=== PATIENT | female | born 1945 | race Caucasian/White ===

== ENCOUNTER 2024-06-26 11:38 | Observation (INO) | payer MEDICARE, SELFPAY ==
[2024-06-26] VITALS (9 sets, daily range): BP systolic 105–125; BP diastolic 57–65; PULSE 58–69; RESP 16–24; TEMP 36.6–37.1; O2SAT 94–97; BMI 28.6
--- NOTE | ~2024-06-26 | XR_ITS ---
XR chest 2V 06/26/2024 12:52 Indication: Cardiac concern Procedure: 2 view chest Comparison: No prior studies for comparison. Findings: Borderline heart size. No focal air space disease, pulmonary edema, pleural effusion or bertha pected pneumothorax. Impression: 1: No acute cardiopulmonary disease. Reviewed, dictated and finalized at location B. COVERER AND INSULATOR Impression: 1: No acute cardiopulmonary disease.
--- NOTE | ~2024-06-26 | CT_ITS ---
CT brain wo con Ordering provider: Josseline vAelar APRN History: 78 years Female with . altered mental status . Comparison: None. Technique: CT of the head without contrast. Radiation reduction technique utilized.The dose-length pr oduct was 605.33 mGy-cm. FINDINGS: BRAIN PARENCHYMA AND CSF SPACES: Bilateral frontal isodense subdural hematomas are seen. The maximum thickness on the right side is 1.3 cm. The maximum thickness on the left is 1.5 cm. Small density with surrounding hypodensity in the left cerebellar hemisphere. Brain atrophy with deep white matter ischemic changes. No midline shift, mass effect or hemorrhage. The brain parenchyma an d CSF spaces are otherwise normal. VISUALIZED PARANASAL SINUSES: Well aerated. MASTOIDS: Sclerotic changes seen in the left mastoid air cells. BONES: The bones appear intact. Postoperative changes of the left occipital bone. SOFT TISSUES: Visualized nasopharynx is normal. Superficial soft tissues are normal. IMPRESSION: Bilateral isodense chronic subdural hematomas. Hypodensity in the left cerebellar area with possible isodense area seen medially. MRI with contrast study for evaluation is advised. Reviewed, dictated and finalized at location A. [employer] IMPRESSION: Bilateral isodense chronic subdural hematomas. Hypodensity in the left cerebellar area with possible isodense area seen medial ly. MRI with contrast study for evaluation is advised.
--- NOTE | 2024-06-26 11:42 | ED.AMS ---
HPI - Altered Mental Status General Chief Complaint: Altered Mental Status <Josseline Avelar APRN - Last Filed: 06/26/24 11:44> Stated Complaint: stroke vs uti? <Josseline Avelar APRN - Last Filed: 06/26/24 11:44> Time Seen by Provider: 06/26/24 11:38 <Josseline Avelar APRN - Last Filed: 06/26/24 11:44> Focused HPI: Patient is an 78-year-old female who presents to the ER with altered mental status. Her last known well is unknown. Patient's daughter had concerns because she is not acting like herself. Patient had a stroke recently and is living in a half-way facility now. She has history of a.fib, although there are no anticoagulant medications listed on her home medication list. Upon arrival to the ER she is alert and oriented x3. EMS reports patient is giddy but her stroke scale is negative. Patient denies pain. GENERAL: Well-appearing, well-nourished, and in no acute distress. HEAD: Normocephalic, atraumatic. CHEST: Clear to auscultation. ?No respiratory distress. HEART: irregular rate and rhythm.? NEURO: ?Alert and oriented x3. Cranial nerves intact. Patient screened in triage and initial orders placed.? ?Additional care and disposition to be based upon?diagnostic testing and treatment. <Josseline Avelar APRN - Last Filed: 06/26/24 11:44> History of Present Illness HPI narrative: Agree with HPI above <Wilfredo Pisano MD - Last Filed: 06/26/24 19:46> Related Data Home Medications: Home Medications Medication Instructions Recorded Confirmed Multivitamin-Minerals 1 tablet PO DAILY 06/26/24 06/26/24 acetaminophen 650 mg tablet 650 mg PO Q6H PRN Pain 06/26/24 06/26/24 atorvastatin 10 mg tablet 10 mg PO HS 06/26/24 06/26/24 bisacodyl 10 mg rectal suppository 10 mg RECTAL DAILY PRN Constipation 06/26/24 06/26/24 (Dulcolax (bisacodyl)) calcium 600 mg (as carbonate)-vit 1 tablet PO DAILY 06/26/24 06/26/24 D3 5 mcg (200 unit)-minerals tablet docusate sodium 100 mg capsule 100 mg PO BID 06/26/24 06/26/24 donepezil 10 mg tablet 10 mg PO HS 06/26/24 06/26/24 levetiracetam 500 mg tablet 500 mg PO BID 06/26/24 06/26/24 levothyroxine 50 mcg tablet 50 mcg PO DAILY 06/26/24 06/26/24 melatonin 3 mg tablet 3 mg PO HS PRN Insomnia 06/26/24 06/26/24 memantine 10 mg tablet 10 mg PO BID 06/26/24 06/26/24 metoprolol succinate 25 mg 12.5 mg PO DAILY 06/26/24 06/26/24 tablet,extended release 24 hr polyethylene glycol 3350 17 gram 17 g PO DAILY 06/26/24 06/26/24 oral powder packet (Miralax) sertraline 50 mg tablet 50 mg PO DAILY 06/26/24 06/26/24 <Josseline Avelar APRN - Last Filed: 06/26/24 11:44> Allergies/Adverse Reactions: Allergies Allergy/AdvReac Type Severity Reaction Status Date / Time No Known Allergies Allergy Verified 06/26/24 14:59 <Josseline Avelar APRN - Last Filed: 06/26/24 11:44> [facility] Social History Social History: Social History Smoking status: Unknown if ever smoked Alcohol intake: never Substance use: never Spiritual care concerns: No <Josseline Avelar APRN - Last Filed: 06/26/24 11:44> Exam Narrative: GENERAL: [Well-appearing, well-nourished, and in no acute distress.] HEAD: [Normocephalic, atraumatic.] EYES: [PERRLA and EOMI.] ENT: Nares clear, no rhinorrhea or epistaxis. Mucous membranes moist. NECK: Supple. CHEST: [Clear to auscultation. No respiratory distress.] HEART: [Regular rate and rhythm]. No murmur heard. [Normal peripheral pulses.] ABDOMEN: [Soft, nondistended], [nontender], [No rigidity or guarding] EXTREMITIES: Normal range of motion. [No edema.] SKIN: Warm, dry, no rash. NEURO: [No focal deficits]. Alert only to her name, pleasant cooperative, not any acute distress, moving all extremities equally without any facial asymmetry PSYCH: [Normal mood and affect.] <Wilfredo Pisano MD - Last Filed: 06/26/24 19:46> Course Vital Signs Vital signs: Vital Signs Temperature 36.6 C 06/26/24 11:41 Pulse Rate 69 06/26/24 11:41 Respiratory Rate 16 06/26/24 11:41 Blood Pressure 107/58 L 06/26/24 11:41 Pulse Oximetry 96 06/26/24 11:41 Oxygen Delivery Room Air 06/26/24 11:41 Temperature 36.6 C 06/26/24 11:41 Pulse Rate 64 06/26/24 15:45 Respiratory Rate 20 06/26/24 15:45 Blood Pressure 125/65 06/26/24 14:36 Pulse Oximetry 97 06/26/24 13:47 Oxygen Delivery Room Air 06/26/24 11:41 <Josseline Avelar, T[employer] - Last Filed: 06/26/24 11:44> Vital Signs Temperature 36.6 C 06/26/24 11:41 Pulse Rate 69 06/26/24 11:41 Respiratory Rate 16 06/26/24 11:41 Blood Pressure 107/58 L 06/26/24 11:41 Pulse Oximetry 96 06/26/24 11:41 Oxygen Delivery Room Air 06/26/24 11:41 Temperature 36.6 C 06/26/24 11:41 Pulse Rate 64 06/26/24 15:45 Respiratory Rate 20 06/26/24 15:45 Blood Pressure 125/65 06/26/24 14:36 Pulse Oximetry 97 06/26/24 13:47 Oxygen Delivery Room Air 06/26/24 11:41 <Wilfredo Pisano MD - Last Filed: 06/26/24 19:46> MDM - Altered Mental Status MDM Narrative Medical decision making narrative: 78-year-old female presenting from [facility] with increased confusion over last 3 days. Patient recently had a right-sided subdural hematoma at outside facility last month. Was discharged home after rehabilitation and sent to [facility]. Daughter states that she has not had any new or increased falls but is currently on reported blood thinner medications. Patient was seen in triage and a workup was ordered including head CT and laboratory assessments. On my initial encounter the patient she is not any acute distress, pleasant, cooperative but is very demented which is at her baseline according to the family member at bedside. Broad workup was ordered to assess for any potential etiologies is infection, urinary tract infection, intracranial process such as a worsening brain bleed, stroke or other process such as infection. Workup revealed no leukocytosis or anemia, normal platelets. Normal coagulation studies. Normal electrolytes, normal renal function panel. Normal hepatic function panel. Negative troponin. Urinalysis without any active signs of infection besides a minor leukocyte Estrace trace. Family informed me that she has been previously on some antibiotics in the last few days for the UTI. She is given a dose of Rocephin here for continued therapy at the request of the family over. We did discuss that her urine does not show any convincing evidence of infection aside from the leukocyte Estrace and she is not require any additional treatments for UTI at this point. Patient's head CT showed some concerning findings and the radiologist did call the mid-level provider to inform them of the bilateral isodense chronic subdural hematomas and hypodensity left cerebellar region with potential for mass of unclear etiology. I went to evaluate the patient once again and she still is pleasant, calm, cooperative without any apparent complaints. I informed the family about the bilateral subdurals and they showed me the report that she only had a right-sided subdural just several weeks ago. Given the new subdural hematoma likely secondary to another fall or other process such as a delayed bleed patient would require admission to the hospital, MRI imaging and neurosurgical evaluation and treatment. I had discussions with the family at bedside at this point who elected to keep the patient as a comfort care status as she was already DNR and DNI and I actually discussed possibility of going into hospice care instead of pursuing any kind of treatments. Patient's power of commercial real estate attorney and family member at bedside was set on initiating talks for hospice and did not want any invasive measures or pursuing treatment for the subdural hematomas. Clinical physician locums urgent care was called to bedside and several options for hospice initiation was discussed. Information was faxed to facility locally and patient will be admitted to the hospital overnight to get placed likely tomorrow morning according to the physician locums urgent care. I discussed the case with the on-call MLP covering the hospitalist group and she was accepted to a med surge but at this time. Patient is DNR status was updated in the EMR and the goals of care being no treatment of the subdurals or any aggressive measures besides comfort care and pain relief until hospice placement tomorrow. <Wilfredo Pisano MD - Last Filed: 06/26/24 19:46> Medical Records Attestation: I reviewed the patient's medical records. <Wilfredo Pisano MD - Last Filed: 06/26/24 19:46> Lab Data Attestation: I reviewed the patient's lab results. <Wilfredo Pisano MD - Last Filed: 06/26/24 19:46> Result diagrams: 06/26/24 12:03 06/26/24 12:03 <Josseline Avelar APRN - Last Filed: 06/26/24 11:44> Labs: Lab Results 06/26/24 06/26/24 Range/Units 12:03 13:46 WBC 10.0 (4.5-10.0) K/mm3 RBC 4.72 (4.2-5.4) M/mm3 Hgb 14.9 (12.0-15.0) g/dL Hct 45.7 (37.0-47.0) % MCV 96.8 (80-100) fl MCH 31.6 (26-34) pg MCHC 32.6 (32-36) g/dl RDW 12.9 (11.5-14.5) % Plt Count 494 H (150-375) k/mm3 MPV 9.3 (7.4-10.4) fl Immature Gran % (Auto) 0.5 (0-0.5) % Neut % (Auto) 66.9 (45.5-73.1) % Lymph % (Auto) 17.8 L (18.3-44.2) % [place] % (Auto) 10.8 H (2.6-8.5) % Eos % (Auto) 3.2 (0-4.4) % Baso % (Auto) 0.8 (0.2-1.2) % Lymph # (Auto) 1.77 (0.9-3.2) K/mm3 [place] # (Auto) 1.1 H (0.1-0.6) K/mm3 Eos # (Auto) 0.3 (0-0.3) K/mm3 Baso # (Auto) 0.1 (0.0-0.1) K/mm3 Abs Immat Gran (auto) 0.05 H (0.00-0.031) K/mm3 Absolute Neuts (auto) 6.7 (1.3-6.7) K/mm3 Absolute Nucleated RBC 0.000 (0.0-0.012) K/mm3 Nucleated RBC % 0.0 (0.0-0.2) % PT 13.7 (11.1-14.7) Seconds INR 1.0 APTT 28.3 (22.3-36.8) Seconds Sodium 138 (137-145) mmol/L Potassium 3.8 (3.4-5.0) mmol/L Chloride 104 (98-107) mmol/L Carbon Dioxide 29 (22-30) mmol/L Anion Gap 5 (4-12) mmol/L BUN 13 (7-17) mg/dL Creatinine 0.70 (0.7-1.0) mg/dL Estim Creat Clear Calc 55 ml/min Estimated GFR > 60 (59 - ) Glucose 124 H (65-110) mg/dL Calcium 9.3 (8.4-10.2) mg/dL Total Bilirubin 0.4 (0.2-1.3) mg/dL AST 24 (14-36) U/L ALT 24 (6-35) U/L Alkaline Phosphatase 93 (38-126) U/L Troponin I < 0.012 (0.000-0.034) ng/mL Total Protein 8.0 (6.3-8.2) g/dL Albumin 4.0 (3.5-5.1) g/dL Urine Color Dark yellow (Yellow) Urine Appearance Clear (Clear) Urine pH 5.5 (5.0-9.0) Ur Specific [place] 1.025 (1.001-1.035) Urine Protein Negative (Negative) mg/dL Urine Glucose (UA) Negative (Negative) mg/dL Urine Ketones Trace H (Negative) mg/dL Ur Blood (Man) Negative (Negative) Urine Nitrate Negative (Negative) Urine Bilirubin Negative (Negative) Urine Urobilinogen 1.0 (<2.0) mg/dL Leukocyte Esterase Rfl Trace H (Negative) REYNA/UL Urine RBC 3-5 H (0-2) /hpf Urine WBC 0-5 (0-3) /hpf Ur Squamous Epith Cells None seen (Few) /hpf Urine Bacteria None seen /hpf Urine Casts 0-2 Influenza A (RT-PCR) Negative (Negative) Influenza B (RT-PCR) Negative (Negative) RSV (RT-PCR) Negative (Negative) SARS-CoV-2 RNA (RT-PCR) Negative (Negative) <Josseline Rudy Avelar, TITLE CLERK [employer] - Last Filed: 06/26/24 11:44> Lab Results 06/26/24 06/26/24 Range/Units 12:03 13:46 WBC 10.0 (4.5-10.0) K/mm3 RBC 4.72 (4.2-5.4) M/mm3 Hgb 14.9 (12.0-15.0) g/dL Hct 45.7 (37.0-47.0) % MCV 96.8 (80-100) fl MCH 31.6 (26-34) pg MCHC 32.6 (32-36) g/dl RDW 12.9 (11.5-14.5) % Plt Count 494 H (150-375) k/mm3 MPV 9.3 (7.4-10.4) fl Immature Gran % (Auto) 0.5 (0-0.5) % Neut % (Auto) 66.9 (45.5-73.1) % Lymph % (Auto) 17.8 L (18.3-44.2) % [place] % (Auto) 10.8 H (2.6-8.5) % Eos % (Auto) 3.2 (0-4.4) % Baso % (Auto) 0.8 (0.2-1.2) % Lymph # (Auto) 1.77 (0.9-3.2) K/mm3 [place] # (Auto) 1.1 H (0.1-0.6) K/mm3 Eos # (Auto) 0.3 (0-0.3) K/mm3 Baso # (Auto) 0.1 (0.0-0.1) K/mm3 Abs Immat Gran (auto) 0.05 H (0.00-0.031) K/mm3 Absolute Neuts (auto) 6.7 (1.3-6.7) K/mm3 Absolute Nucleated RBC 0.000 (0.0-0.012) K/mm3 Nucleated RBC % 0.0 (0.0-0.2) % PT 13.7 (11.1-14.7) Seconds INR 1.0 APTT 28.3 (22.3-36.8) Seconds Sodium 138 (137-145) mmol/L Potassium 3.8 (3.4-5.0) mmol/L Chloride 104 (98-107) mmol/L Carbon Dioxide 29 (22-30) mmol/L Anion Gap 5 (4-12) mmol/L BUN 13 (7-17) mg/dL Creatinine 0.70 (0.7-1.0) mg/dL Estim Creat Clear Calc 55 ml/min Estimated GFR > 60 (59 - ) Glucose 124 H (65-110) mg/dL Calcium 9.3 (8.4-10.2) mg/dL Total Bilirubin 0.4 (0.2-1.3) mg/dL AST 24 (14-36) U/L ALT 24 (6-35) U/L Alkaline Phosphatase 93 (38-126) U/L Troponin I < 0.012 (0.000-0.034) ng/mL Total Protein 8.0 (6.3-8.2) g/dL Albumin 4.0 (3.5-5.1) g/dL Urine Color Dark yellow (Yellow) Urine Appearance Clear (Clear) Urine pH 5.5 (5.0-9.0) Ur Specific [place] 1.025 (1.001-1.035) Urine Protein Negative (Negative) mg/dL Urine Glucose (UA) Negative (Negative) mg/dL Urine Ketones Trace H (Negative) mg/dL Ur Blood (Man) Negative (Negative) Urine Nitrate Negative (Negative) Urine Bilirubin Negative (Negative) Urine Urobilinogen 1.0 (<2.0) mg/dL Leukocyte Esterase Rfl Trace H (Negative) REYNA/UL Urine RBC 3-5 H (0-2) /hpf Urine WBC 0-5 (0-3) /hpf Ur Squamous Epith Cells None seen (Few) /hpf Urine Bacteria None seen /hpf Urine Casts 0-2 Influenza A (RT-PCR) Negative (Negative) Influenza B (RT-PCR) Negative (Negative) RSV (RT-PCR) Negative (Negative) SARS-CoV-2 RNA (RT-PCR) Negative (Negative) <Wilfredo Pisano MD - Last Filed: 06/26/24 19:46> Imaging Data Attestation: I personally reviewed and interpreted this imaging study as follows: <Wilfredo Pisano MD - Last Filed: 06/26/24 19:46> My impression: Impressions Head CT 06/26/24 12:48 IMPRESSION: Bilateral isodense chronic subdural hematomas. Hypodensity in the left cerebellar area with possible isodense area seen medially. MRI with contrast study for evaluation is advised. ADDENDUM: 06/26/24 1315 Physician: Josseline Avelar APRN Was notified with the result of the patient at 1:15 PM on June 26, 2024 Chest X-Ray 06/26/24 12:53 Impression: 1: No acute cardiopulmonary disease. <Wilfredo Pisano MD - Last Filed: 06/26/24 19:46> Discharge Plan Discharge Clinical Impression: Admission for hospice care, Altered mental status, SDH (subdural hematoma) <Josseline Aevlar APRN - Last Filed: 06/26/24 11:44> Patient Disposition: Home, Self-Care <Josseline Avelar APRN - Last Filed: 06/26/24 11:44> Condition: Stable <Josseline Avelar APRN - Last Filed: 06/26/24 11:44>
--- NOTE | 2024-06-26 11:45 | ECG_ITS ---
Test Date: 2024-06-26 11:54:46 Measurements Intervals [place] Rate: 61 P: 50 VT: 165 QRS: -35 QRSD: 122 T: 27 QT: 432 QTc: 436 Interpretive Statements SINUS RHYTHM LEFT AXIS DEVIATION RIGHT BUNDLE BRANCH BLOCK BASELINE ARTIFACT- I, II, III, AVR, V4-V6 ABNORMAL ECG No previous ECG available for comparison Electronically Signed On 06-26-2024 12:00:57 PRINCIPAL SOFTWARE ARCHITECT by Kd Vang D.O.
[2024-06-26 12:11] LABS: Basophils Absolute Auto 0.1 K/mm3 (0.0-0.1); Basophils Percent Auto 0.8 % (0.2-1.2); Eosinophils Absolute Auto 0.3 K/mm3 (0-0.3); Eosinophils Percent Auto 3.2 % (0-4.4); Hematocrit 45.7 % (37.0-47.0); Hemoglobin 14.9 g/dL (12.0-15.0); Immature Granulocyte Absolute 0.05 K/mm3 (0.00-0.031); Immature Granulocyte Percent A 0.5 % (0-0.5); Lymphocytes Absolute Auto 1.77 K/mm3 (0.9-3.2); Lymphocytes Percent Auto 17.8 % (18.3-44.2); Mean Corpuscular HGB Conc 32.6 g/dl (32-36); Mean Corpuscular Hemoglobin 31.6 pg (26-34); Mean Corpuscular Volume 96.8 fl (80-100); Mean Platelet Volume 9.3 fl (7.4-10.4); Monocytes Absolute Auto 1.1 K/mm3 (0.1-0.6); Monocytes Percent Auto 10.8 % (2.6-8.5); Neutrophils Absolute Auto 6.7 K/mm3 (1.3-6.7); Neutrophils Percent Auto 66.9 % (45.5-73.1); Platelet Count Result 494 k/mm3 (150-375); Red Blood Count 4.72 M/mm3 (4.2-5.4); Red Cell Distribution Width 12.9 % (11.5-14.5)
[2024-06-26 12:24] LABS: Partial Thromboplastin Time 28.3 Seconds (22.3-36.8); Prothrombin Time 13.7 Seconds (11.1-14.7)
[2024-06-26 12:29] LABS: Alanine Aminotransferase 24 U/L (6-35); Alkaline Phosphatase 93 U/L (38-126); Anion Gap 5 mmol/L (4-12); Aspartate Amino Transferase 24 U/L (14-36); Bilirubin,Total 0.4 mg/dL (0.2-1.3); Blood Urea Nitrogen 13 mg/dL (7-17); Calcium 9.3 mg/dL (8.4-10.2); Carbon Dioxide 29 mmol/L (22-30); Chloride 104 mmol/L (98-107); Estimated CRCL calculation 55 ml/min; Estimated Glomerular Filt Rate > 60; Glucose 124 mg/dL (65-110); Potassium 3.8 mmol/L (3.4-5.0); Sodium 138 mmol/L (137-145)
[2024-06-26 12:40] LABS: Troponin I < 0.012 ng/mL (0.000-0.034)
[2024-06-26 12:46] LABS: Influenza A QL RT-PCR Negative (Negative); Influenza B QL RT-PCR Negative (Negative); RSV RNA, RT-PCR Negative (Negative); SARS-CoV-2 RNA PCR Negative (Negative)
[2024-06-26 13:58] LABS: Add Urine Microscopic? YES; Appearance Urine Clear (Clear); Bacteria Urine None Seen /hpf; Bilirubin Urine Negative (Negative); Blood Urine Negative (Negative); Color Urine Dark Yellow (Yellow); Glucose Urine UA Negative (Negative); Ketones Urine Trace mg/dL (Negative); Leukocyte Esterase Ur Trace LEU/UL (Negative); Nitrate Urine Negative (Negative); Non Pathogenic Casts 0-2; Protein Urine Negative (Negative); Specific Grav Ur 1.025 (1.001-1.035); Squamous Epithelial Cell Urine None Seen /hpf (Few); WBC Urine 0-5 /hpf (0-3); pH Urine 5.5 (5.0-9.0)
--- NOTE | 2024-06-26 14:27 | PCCCNOTE ---
1427-Called to the pt's room d/t the daughter and POA requesting Hospice and change in placement from [facility]. Stated she wanted her mom to go to Hospice however was not aware there is no local facility. Pt is also medicaid pending and with [facility]. Supplied a list of NH in the area for the daughter to review at this time. Family does not have the finances to pay of of pocket for placement.hetal.
[2024-06-26] MEDS: Please add drug allergy info to patient profile. 1 EACH XX (15:00)
--- NOTE | 2024-06-26 15:11 | PCCCNOTE ---
1511-Pt's daughter is wanting the pt to be sent to [facility]. Called [phone] and spoke to Suzanne. Stated they are accepting pt's with medicaid pending status and to fax a referral to them at [phone] which was completed. Also faxed a referral to [facility] and verified with Suzanne they also do accept [facility] at their facility if the pt is admitted there would be no potential conflicts. Charge nurse and family made aware of the pending status.-hetal.
--- NOTE | 2024-06-26 15:41 | PCCCNOTE ---
1541-Called [facility] at [phone] and [facility] for Suzanne to return the call in attempts to check on the status of approval/denial of admission to facility.-hetal.
--- NOTE | 2024-06-26 15:57 | PCCCNOTE ---
*1557- Daughter received a call Kamille will be in house to see the pt at 1615 today. Suzanne also called from [facility] and stated the fax goes to their business office and the referral is pending. She is unsure if the pt can/will be admitted this evening.-hetal.
[2024-06-26 16:37] LABS: Glucose Point of Care 139 mg/dl (65-105)
--- NOTE | 2024-06-26 18:19 | ADMGEN ---
This patient, Zaida Carreno, was admitted to Medical Room 341-01. Patient/family oriented to hospital policies and general routines including ID bracelet, bed and alarms, visiting hours, pain management, procedures, bathroom and other care routines, personal items, smoking policy, room service/diet, and visiting hours. Information on how to activate the Rapid Response Team has been discussed. Patient/Family are encouraged to report perceived risks to care and to ask questions if they do not understand what they are told or what they should do.
--- NOTE | 2024-06-26 19:36 | PM.IMHP ---
H&P: HPI History of Present Illness Date/Time: 06/26/24 19:36 Chief Complaint: Altered mental status Narrative: 78-year-old female with fall last month resulting in bilateral subdural hemorrhages presents the hospital a day for increased altered mental status. Patient was a long term and the daughter saw her today stating at she had increased slurred speech and was acting bizarre. HPI is limited due to the patient having altered mental status. For the ED provider the patient was A&O x3. Patient is alert and oriented to self and hospital however she is confused about the events that happened today. Patient's UA showed trace leukocyte esterase and patient was given Rocephin done emergency room. Head CT showed Bilateral frontal isodense subdural hematomas are seen. The maximum thickness on the right side is 1.3 cm. The maximum thickness on the left is 1.5 cm, which appeared to be chronic. Family wishes no aggressive measures, DNR, DNI no escalation care. Family wishes to have patient admitted to hospice, plan for patient to discharge to hospice tomorrow. Patient has no complaints at this time Review of Systems Review of Systems: ROS unobtainable: Yes unobtainable due to mental status PMFSH Social History Social History Smoking status: Unknown if ever smoked Alcohol intake: never Substance use: never Spiritual care concerns: No Meds Home Medications and Allergies Home Medications Medication Instructions Recorded Confirmed Type Multivitamin-Minerals 1 tablet PO DAILY 06/26/24 06/26/24 History acetaminophen 650 mg tablet 650 mg PO Q6H PRN Pain 06/26/24 06/26/24 History atorvastatin 10 mg tablet 10 mg PO HS 06/26/24 06/26/24 History bisacodyl 10 mg rectal suppository 10 mg RECTAL DAILY PRN Constipation 06/26/24 06/26/24 History (Dulcolax (bisacodyl)) calcium 600 mg (as carbonate)-vit 1 tablet PO DAILY 06/26/24 06/26/24 History D3 5 mcg (200 unit)-minerals tablet docusate sodium 100 mg capsule 100 mg PO BID 06/26/24 06/26/24 History donepezil 10 mg tablet 10 mg PO HS 06/26/24 06/26/24 History levetiracetam 500 mg tablet 500 mg PO BID 06/26/24 06/26/24 History levothyroxine 50 mcg tablet 50 mcg PO DAILY 06/26/24 06/26/24 History melatonin 3 mg tablet 3 mg PO HS PRN Insomnia 06/26/24 06/26/24 History memantine 10 mg tablet 10 mg PO BID 06/26/24 06/26/24 History metoprolol succinate 25 mg 12.5 mg PO DAILY 06/26/24 06/26/24 History tablet,extended release 24 hr polyethylene glycol 3350 17 gram 17 g PO DAILY 06/26/24 06/26/24 History oral powder packet (Miralax) sertraline 50 mg tablet 50 mg PO DAILY 06/26/24 06/26/24 History Allergies Allergy/AdvReac Type Severity Reaction Status Date / Time No Known Allergies Allergy Verified 06/26/24 14:59 Vital Signs Vital Signs - 24 hr 06/26/24 11:41 06/26/24 13:47 06/26/24 14:01 Temperature 97.8 F Pulse Rate 69 59 L 59 L Respiratory Rate 16 24 H 23 H Blood Pressure 107/58 L 109/60 105/59 L Pulse Oximetry 96 97 Oxygen Delivery Room Air 06/26/24 14:16 06/26/24 14:36 06/26/24 14:37 Temperature Pulse Rate 60 64 61 Respiratory Rate 23 H 20 19 Blood Pressure 114/57 L 125/65 Pulse Oximetry Oxygen Delivery 06/26/24 15:35 06/26/24 15:45 Temperature Pulse Rate 62 64 Respiratory Rate 19 20 Blood Pressure Pulse Oximetry Oxygen Delivery Exam Narrative: General: well appearing, appears stated age. HEENT: normocephalic, atraumatic. Mucous membranes moist. EOMI, PERRLA, bilateral sclera anicteric, no conjunctival injection. Neck supple without JVD, lymphadenopathy, or bruit. Respiratory: clear to ascultation bilaterally. No rales/rhonic/wheezes. Cardiovascular: Regular rate and rhythm, normal S1-S2 upon ascultation. No murmurs, rubs, or clicks. PMI is nondisplaced, capillary refill less than 3 second. Abdomen: Soft, round, no pulsatile masses, nondistended and nontender. No rebound, no guarding. No CVA tenderness, no hepatosplenomegaly. Bowel sounds present to all four quadrants. No high pitch or tinkling sounds, resonant to percussion. Extremities: No cyanosis, clubbing, or edema present. Pulses are palpable 2/2. Active ROM to all four extremities. Neuro: Alert and orientated x 2. PERRLA. Cranial nerves 2-12 intact without focal deficit. Skin: Warm, dry, and intact, without rash, erythema, or lesion. Psych: pleasant, cooperative, normal speech, normal affect, no hallucinations, no dysarthia H&P: Results Labs Labs: Short CBC 06/26/24 Range/Units 12:03 WBC 10.0 (4.5-10.0) K/mm3 Hgb 14.9 (12.0-15.0) g/dL Hct 45.7 (37.0-47.0) % Plt Count 494 H (150-375) k/mm3 BMP 06/26/24 12:03 Sodium 138 Potassium 3.8 Chloride 104 Carbon Dioxide 29 BUN 13 Creatinine 0.70 Glucose 124 H Calcium 9.3 Cardiac Enzymes 06/26/24 Range/Units 12:03 Troponin I < 0.012 (0.000-0.034) ng/mL Liver Function 06/26/24 Range/Units 12:03 Total Bilirubin 0.4 (0.2-1.3) mg/dL AST 24 (14-36) U/L ALT 24 (6-35) U/L Alkaline Phosphatase 93 (38-126) U/L Albumin 4.0 (3.5-5.1) g/dL Urine 06/26/24 Range/Units 13:46 Urine Color Dark yellow (Yellow) Urine Appearance Clear (Clear) Urine pH 5.5 (5.0-9.0) Ur Specific Model 1.025 (1.001-1.035) Urine Protein Negative (Negative) mg/dL Urine Glucose (UA) Negative (Negative) mg/dL Assessment and Plan Assessment and plan (1) Altered mental status: Code(s): R41.82 - Altered mental status, unspecified Status: Acute Assessment and Plan: Could be due to dementia versus chronic subdural hemorrhage versus UTI Family planned on patient being discharged to hospice tomorrow Hospice consulted (2) SDH (subdural hematoma): Code(s): S06.5XAA - Traumatic subdural hemorrhage with loss of consciousness status unknown, initial encounter Status: Acute Assessment and Plan: Chronic bilateral subdural hemorrhage (3) UTI (urinary tract infection): Code(s): N39.0 - Urinary tract infection, site not specified Status: Acute Assessment and Plan: IV Rocephin (4) Dementia: Code(s): F03.90 - Unspecified dementia, unspecified severity, without behavioral disturbance, psychotic disturbance, mood disturbance, and anxiety Status: Acute Assessment and Plan: Restart home medications Plan Family wishes for patient to be treated for UTI while she is in hospital however the plan is to discharge to hospice tomorrow. Quality VTE Prophylaxis VTE prophylaxis: mechanical ordered Hospitalist MIPS Advance Care Plan I have confirmed that the patient's Advanced Care Plan is present, code status is documented, or surrogate decision maker is listed in patient medical record.: Yes Medication Reconciliation I have utilized all available resources to obtain, update and review the patients current medications (includes all prescriptions, OTC, herbals, cannabis, and nutritional supplements).: Yes
[2024-06-26] MEDS: ACETAMINOPHEN 325 MG TABLET 650 MG PO (19:56)
[2024-06-26] MEDS: ATORVASTATIN 10 MG TABLET PO (20:58)
[2024-06-26] MEDS: DONEPEZIL HCL 10 MG TABLET PO (20:58)
[2024-06-26] MEDS: MELATONIN 3 MG TABLET PO (20:58)
[2024-06-27] MEDS: LEVOTHYROXINE SODIUM 50 MCG TABLET PO (05:43)
[2024-06-27 06:00] VITALS: BP 117/57; PULSE 53; RESP 16; TEMP 36.5; O2SAT 94
[2024-06-27] MEDS: SERTRALINE HCL 50 MG TABLET PO (09:51)
[2024-06-27] MEDS: DOCUSATE SODIUM 100 MG CAPSULE PO (09:51)
[2024-06-27] MEDS: MEMANTINE 10 MG TABLET PO (09:51)
[2024-06-27 09:52] VITALS: PULSE 67
[2024-06-27] MEDS: METOPROLOL SUCCINATE EXT REL 12.5 MG TABCR PO (09:52)
[2024-06-27 14:00] VITALS: BP 123/50; PULSE 69; RESP 14; TEMP 36.9; O2SAT 94
[2024-06-27 14:36] LABS: SARS-CoV-2 RNA PCR Negative (Negative)
--- NOTE | 2024-06-27 14:45 | PM.DS ---
DS: Admitting Diagnosis Discharge Date 06/27/24 Admitting Diagnosis Altered Mental Status DS: Discharge Diagnosis Discharge Diagnosis (1) Altered mental status: Code(s): R41.82 - Altered mental status, unspecified Status: Acute Assessment and Plan: - Appears chronic. - CT head negative for acute. - CXR negative. - UA negative for UTI. - Appears baseline. (2) SDH (subdural hematoma): Code(s): S06.5XAA - Traumatic subdural hemorrhage with loss of consciousness status unknown, initial encounter Status: Acute Assessment and Plan: - Chronic. - Patient being transferred to group home on Hospice care. (3) Dementia: Code(s): F03.90 - Unspecified dementia, unspecified severity, without behavioral disturbance, psychotic disturbance, mood disturbance, and anxiety Status: Acute Assessment and Plan: - Chronic. - Assist with care and monitor for safety. Plan Discharge to Residential DS: Summary Hospital Course Reason for hospitalization: Altered Mental Status Hospital Course: 78-year-old female with fall last month resulting in bilateral subdural hemorrhages presented to the hospital with increased altered mental status. Patient was at the group home and daughter visited her, reporting increased slurred speech and pt acting bizarre. Patient was confused about the events that happened prior to her admission. Patient family visited and decided to transfer patient to a group home on hospice care. Patient is pleasantly confused and denies any pain or other distressful symptoms. Patient's CT head showed Bilateral isodense chronic subdural hematomas. CXR was negative for acute, with her UA also negative for UTI. She's getting transferred to the group home on hospice per family desire. Status at Discharge Functional status at discharge: uses cane/walker Overall status at discharge: patient is back to baseline Time Spent with Patient Time attestation: Total time spent providing and/or coordinating discharge services: Time spent: Less than 30 minutes Exam Narrative: General: well appearing, no acute distress. HEENT: normocephalic, atraumatic. Mucous membranes moist. EOMI, PERRLA, bilateral sclera anicteric. Neck supple without JVD, lymphadenopathy, or bruit. Respiratory: clear to auscultation bilaterally. Cardiovascular: Regular rate and rhythm, normal S1-S2. Abdomen: Soft, round, nondistended and nontender. Bowel sounds present to all four quadrants. Extremities: No cyanosis, clubbing, or edema present. Active ROM to all four extremities. Neuro: Alert and orientated x 2. Cranial nerves 2-12 intact without focal deficit. Skin: Warm, dry, and intact, without rash, erythema, or lesion. Psych: pleasantly confused and cooperative. DS: Data Data Completed and Pending Labs on day of discharge: Labs from last 24 hours 06/27/24 06/26/24 13:46 16:34 POC Capillary Glucose 139 H SARS-CoV-2 RNA (RT-PCR) Negative Discharge Plan Discharge Attending physician on discharge: Nas Lynn Discharging Clinician: Kristi Lugo Anticipated Discharge Date/Time: 06/27/24 15:07 Patient Disposition: Hospice - Medical Facility Activity: as tolerated Diet: as tolerated Stand Alone Forms: General Discharge Information Follow-up/Referrals: Bettie,Miguel A Brenner MD [Primary Care Provider] - 1 Week Discharge Medications: Continued polyethylene glycol 3350 [Miralax] 17 gram Powder In Packet 17 g PO DAILY levetiracetam 500 mg tablet 500 mg PO BID melatonin 3 mg Tablet 3 mg PO HS PRN (Reason: Insomnia) acetaminophen 650 mg Tablet 650 mg PO Q6H PRN (Reason: Pain) bisacodyl [Dulcolax (bisacodyl)] 10 mg Suppository 10 mg RECTAL DAILY PRN (Reason: Constipation) docusate sodium 100 mg Capsule 100 mg PO BID Discontinued atorvastatin 10 mg tablet 10 mg PO HS donepezil 10 mg tablet 10 mg PO HS levothyroxine 50 mcg tablet 50 mcg PO DAILY metoprolol succinate 25 mg tablet extended release 24 hr 12.5 mg PO DAILY sertraline 50 mg tablet 50 mg PO DAILY memantine 10 mg tablet 10 mg PO BID calcium carbonate-vit D3-min 600 mg calcium- 200 unit Tablet 1 tablet PO DAILY Multivitamin-Minerals 1 tablet PO DAILY Date of admission: 06/26/24 16:25 Primary Care Provider: BettieMiguel A Admitting Provider: Ning Madrigal Attending physician on admission: Ning Madrigal Condition: Stable Quality If No VTE Prophylaxis Answer both mechanical and pharmacologic: Reason no mechanical VTE proph: low risk/not indicated Reason no pharmacologic proph: low risk/not indicated Hospitalist MIPS Heart Failure (Exclusion) Patient has history of Heart Transplant or Left Ventricular Assistive Device?: No IF YES, STOP HERE Heart Failure (Qualifier) Patient has current or prior documentation of LVEF less than or equal to 40%, or mod/servere depressed LVSF?: No IF NO, STOP HERE
== END 2024-06-27 15:30 | disposition hospice, inpatient (51) ==
LOC: ANHED 14:27 → ANH3MED 17:50
PROVIDERS: Nurse Practitioner Adult Health; Registered Nurse; Admitting Provider Internal Medicine; Emergency Provider Student in an Organized Health Care Education/Training Program; PCP Family Medicine; Visit Provider Internal Medicine
DX: N39.0 Urinary tract infection, site not specified (principal); S06.5XAA Traumatic subdural hemorrhage with loss of consciousness status unknown, initial encounter; W19.XXXA Unspecified fall, initial encounter; F03.90 Unspecified dementia, unspecified severity, without behavioral disturbance, psychotic disturbance, mood disturbance, and anxiety; Z20.822 Contact with and (suspected) exposure to COVID-19; Z66 Do not resuscitate; Z79.899 Other long term (current) drug therapy
CPT/HCPCS: 36415; 70450; 71046; 80053; 81001; 82948; 84484; 85025; 85610; 85730; 87635; 87637; 93005; 96365; 99285; A9270; G0378; J0696